=== PATIENT | female | born 1950 | race African-American/Black ===

== ENCOUNTER 2017-12-05 04:10 | Observation (INO) | payer MEDICARE, OTHER ==
[2017-12-05] MEDS ORDERED: NITROGLYCERIN SUBLINGUAL 0.4 MG BOTTLE OF 25. SL ×2 (04:30→05:15)
[2017-12-05 04:39] LABS: ADD MAN DIFF? NO
[2017-12-05] MEDS: NITROGLYCERIN OINT 1 GM PACKET. TP (04:40)
[2017-12-05] MEDS: ASPIRIN CHEWABLE 81 MG TABLET. PO (04:40)
[2017-12-05 04:41] LABS: BASO # 0.1 x10^3/uL (0.0-0.2); BASO % 1 % (0-3); EOS # 0.3 x10^3/uL (0.0-0.7); EOS % 4 % (0-3); HEMATOCRIT 34.6 % (36.0-47.0); HEMOGLOBIN 11.8 g/dL (12.0-15.5); LYMPH # 3.2 x10^3/uL (1.0-4.8); LYMPH % 46 % (24-48); MEAN CORPUSCULAR HEMOGLOBIN 31 pg (25-35); MEAN CORPUSCULAR HGB CONC 34 g/dL (31-37); MEAN CORPUSCULAR VOLUME 91 fL (79-100); MONO # 0.6 x10^3/uL (0.0-1.1); MONO % 8 % (0-9); NEUT # 2.9 x10^3uL (1.8-7.7); NEUT % 41 % (31-73); PLATELET COUNT 243 x10^3/uL (140-400); RED BLOOD COUNT 3.78 x10^6/uL (3.50-5.40); RED CELL DISTRIBUTION WIDTH 12.9 % (11.5-14.5)
[2017-12-05 04:50] LABS: ANION GAP 12 (6-14); BLOOD UREA NITROGEN 16 mg/dL (7-20); BUN/CREATININE RATIO 18 (6-20); CALCIUM 8.9 mg/dL (8.5-10.1); CARBON DIOXIDE 22 mmol/L (21-32); CHLORIDE 108 mmol/L (98-107); CREATININE 0.9 mg/dL (0.6-1.0); GFR 75.3; GLUCOSE 106 mg/dL (70-99); POTASSIUM 3.8 mmol/L (3.5-5.1); SODIUM 142 mmol/L (136-145)
[2017-12-05 04:56] LABS: ALBUMIN 3.5 g/dL (3.4-5.0); ALK PHOS 83 U/L (46-116); ALT (SGPT) 25 U/L (14-59); AST (SGOT) 14 U/L (15-37); TOTAL BILIRUBIN 0.5 mg/dL (0.2-1.0); TOTAL PROTEIN 7.1 g/dL (6.4-8.2)
[2017-12-05 04:58] LABS: TROPONINI < 0.017 ng/mL (0.000-0.055)
[2017-12-05] MEDS ORDERED: ONDANSETRON PF 4 MG/2 ML VIAL. IV (05:15)
[2017-12-05] MEDS: IV NORMAL SALINE 1000ML BAG 1,000 ML IV (06:00)
[2017-12-05] MEDS: LIDO:MAALOX 1:1 20 ML SINGLE DOSE. PO (06:46)
[2017-12-05 08:35] LABS: TROPONINI < 0.017 ng/mL (0.000-0.055)
[2017-12-05] MEDS: HYDROcodone/APAP 5/325MG 1 TAB TABLET PO ×2 (09:02→15:08)
[2017-12-05 11:36] LABS: CHOLESTEROL 208 mg/dL (0-200); HDLC 50 mg/dL (40-60); LDLC 135 mg/dL (0-100); NON-HDL CHOLESTEROL 158 mg/dL (0-129); TRIGLYCERIDES 113 mg/dL (0-150); VLDLC 23 mg/dL (0-40)
[2017-12-05 11:40] LABS: CHOLESTEROL/HDL RATIO 4.2
[2017-12-05 12:42] LABS: TROPONINI < 0.017 ng/mL (0.000-0.055)
[2017-12-05] MEDS ORDERED: AZITHRMYCN 500MG IVPB FOR OMNI 250 ML IV (16:30)
[2017-12-05] MEDS: PANTOPRAZOLE 40 MG TABLET.DR. PO (18:41)
[2017-12-05] MEDS: guaiFENesin DM 600/30MG 1 TAB TAB.ER.12H PO (18:41)
[2017-12-05] MEDS: AZITHROMYCIN 500 MG in IV NORMAL SALINE 250ML 250 ML IV (18:42)
[2017-12-05] MEDS: cefTRIAXone IV Push 1 GM VIAL. IVP (18:42)
[2017-12-05] MEDS: IPRATRPIUM/ALBUTEROL 0.5/2.5MG 3 ML NEBU. NEB (20:21)
[2017-12-05] MEDS: ENOXAPARIN 40 MG/0.4 ML SYRINGE. SQ (21:23)
[2017-12-06] MEDS: IPRATRPIUM/ALBUTEROL 0.5/2.5MG 3 ML NEBU. NEB ×4 (07:39→20:11)
[2017-12-06] MEDS: REGADENOSON 0.4 MG/5 ML DISP.SYRIN. IV (08:45)
[2017-12-06] MEDS: PANTOPRAZOLE 40 MG TABLET.DR. PO (11:48)
[2017-12-06] MEDS: guaiFENesin DM 600/30MG 1 TAB TAB.ER.12H PO ×2 (11:48→21:06)
[2017-12-06] MEDS ORDERED: CONTRAST GIVEN MC (16:45)
[2017-12-06] MEDS: cefTRIAXone IV Push 1 GM VIAL. IVP (20:02)
[2017-12-06] MEDS: HYDROcodone/APAP 5/325MG 1 TAB TABLET PO (20:02)
[2017-12-06] MEDS: CALCIUM CARBONATE 500 MG TAB.CHEW PO (21:06)
[2017-12-06] MEDS: LACTOBACILLUS RHAMNOSUS GG 1 CAPSULE. PO (21:06)
[2017-12-06] MEDS: ENOXAPARIN 40 MG/0.4 ML SYRINGE. SQ (21:08)
[2017-12-07] MEDS: IPRATRPIUM/ALBUTEROL 0.5/2.5MG 3 ML NEBU. NEB ×4 (07:38→20:10)
[2017-12-07] MEDS: IOHEXOL 300 MG/ML 100ML VIAL. IV (08:45)
[2017-12-07] MEDS: PANTOPRAZOLE 40 MG TABLET.DR. PO (10:18)
[2017-12-07] MEDS: LACTOBACILLUS RHAMNOSUS GG 1 CAPSULE. PO ×2 (10:19→20:35)
[2017-12-07] MEDS: guaiFENesin DM 600/30MG 1 TAB TAB.ER.12H PO ×2 (10:20→20:35)
[2017-12-07] MEDS: HYDROcodone/APAP 5/325MG 1 TAB TABLET PO ×2 (14:56→23:18)
[2017-12-07] MEDS: cefTRIAXone IV Push 1 GM VIAL. IVP (17:04)
[2017-12-07] MEDS: ENOXAPARIN 40 MG/0.4 ML SYRINGE. SQ (20:37)
[2017-12-08] MEDS: CALCIUM CARBONATE 500 MG TAB.CHEW PO ×2 (03:29→08:28)
[2017-12-08] MEDS: IPRATRPIUM/ALBUTEROL 0.5/2.5MG 3 ML NEBU. NEB ×2 (07:53→11:26)
[2017-12-08] MEDS: LACTOBACILLUS RHAMNOSUS GG 1 CAPSULE. PO (08:29)
[2017-12-08] MEDS: HYDROcodone/APAP 5/325MG 1 TAB TABLET PO (08:29)
[2017-12-08] MEDS: PANTOPRAZOLE 40 MG TABLET.DR. PO (08:29)
[2017-12-08] MEDS: guaiFENesin DM 600/30MG 1 TAB TAB.ER.12H PO (08:29)
[2017-12-08] MEDS: IBUPROFEN 600 MG TABLET. PO (11:16)
== END 2017-12-08 13:00 | disposition home or self-care (01) ==
LOC: ER 04:10 → 5 SOUTH 05:43
DX: R07.9 Chest pain, unspecified (principal); I10 Essential (primary) hypertension; E78.5 Hyperlipidemia, unspecified; G43.909 Migraine, unspecified, not intractable, without status migrainosus; K21.9 Gastro-esophageal reflux disease without esophagitis; M19.90 Unspecified osteoarthritis, unspecified site; F17.210 Nicotine dependence, cigarettes, uncomplicated; F32.9 Major depressive disorder, single episode, unspecified; J44.1 Chronic obstructive pulmonary disease with (acute) exacerbation; Z83.3 Family history of diabetes mellitus; Z90.710 Acquired absence of both cervix and uterus
CPT/HCPCS: 36415; 71045; 71250; 71275; 78452; 80053; 80061; 84484; 85025; 93005; 93017; 93306; 94618; 94640; 94760; 96365; 96372; 96374; 96375; 96376; 99285; A9500; G0378; G0379; J0456; J0696; J1650; J2785; J7050; J7620; Q9967

== ENCOUNTER 2018-01-20 12:49 | Emergency (ER) | payer MEDICARE, OTHER ==
[2018-01-20] MEDS: DIPHTH,PERTUSS(ACELL),TET TOX 0.5 ML DISP.SYRIN. VAX IM (13:06)
== END 2018-01-20 13:36 | disposition home or self-care (01) ==
LOC: ER 12:49
DX: L03.011 Cellulitis of right finger (principal)
CPT/HCPCS: 90471; 90715; 99283-25

== ENCOUNTER 2018-06-22 23:02 | Emergency (ER) | payer MEDICARE, OTHER ==
[~2018-06-22] VITALS: Ht 172.7 cm; Wt 70.3 kg
[~2018-06-22 23:02] MED LIST: AZIT250T PO; FAMO20TA5 PO; HYDR-2758 PO; ONDA4TAB10 SL; PANT40TA5 PO; SULF1TAB24 PO
[2018-06-22 23:40] VITALS: BP 149/87
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
[2018-06-23] MEDS ORDERED: HYDR-971 PO (00:38)
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
== END 2018-06-23 01:05 | disposition home or self-care (01) ==
LOC: ER 23:02
DX: S62.306A Unspecified fracture of fifth metacarpal bone, right hand, initial encounter for closed fracture (principal); Y04.0XXA Assault by unarmed brawl or fight, initial encounter; Y93.89 Activity, other specified; Y92.89 Other specified places as the place of occurrence of the external cause; Y99.8 Other external cause status
CPT/HCPCS: 29125; 73130; 99284-25

== ENCOUNTER 2019-04-18 15:35 | Inpatient (IN) | payer MEDICARE, OTHER ==
[~2019-04-18] VITALS: Ht 172.7 cm; Wt 67.3 kg
[~2019-04-18 15:35] MED LIST changes: -HYDR-2758 PO; +HYDR-2761 PO; +HYDR-3164 PO; +HYDR25TA PO; -PANT40TA5 PO; +PANT40TA77 PO; +PERM60CR11 TP
[2019-04-18 16:32] LABS: BASO # 0.1 x10^3/uL (0.0-0.2); BASO % 1 % (0-3); EOS # 0.2 x10^3/uL (0.0-0.7); EOS % 4 % (0-3); HEMATOCRIT 38.4 % (36.0-47.0); LYMPH # 3.1 x10^3/uL (1.0-4.8); LYMPH % 45 % (24-48); MEAN CORPUSCULAR HEMOGLOBIN 31 pg (25-35); MEAN CORPUSCULAR HGB CONC 34 g/dL (31-37); MEAN CORPUSCULAR VOLUME 92 fL (79-100); MONO # 0.6 x10^3/uL (0.0-1.1); MONO % 9 % (0-9); NEUT # 2.9 x10^3/uL (1.8-7.7); NEUT % 42 % (31-73); PLATELET COUNT 237 x10^3/uL (140-400); RED BLOOD COUNT 4.16 x10^6/uL (3.50-5.40); RED CELL DISTRIBUTION WIDTH 14.8 % (11.5-14.5); WHITE BLOOD COUNT 6.8 x10^3/uL (4.0-11.0)
[2019-04-18 16:40] LABS: CALCIUM 9.3 mg/dL (8.5-10.1); CREATININE 0.9 mg/dL (0.6-1.0); GFR 75.1; POTASSIUM 3.4 mmol/L (3.5-5.1)
[2019-04-18 16:45] LABS: ALBUMIN 3.6 g/dL (3.4-5.0); ALBUMIN/GLOBULIN RATIO 0.9 (1.0-1.7); TOTAL BILIRUBIN 0.6 mg/dL (0.2-1.0); TOTAL PROTEIN 7.4 g/dL (6.4-8.2)
[2019-04-18] MEDS ORDERED: CONTRAST GIVEN. MC PRN (16:45)
[2019-04-18] MEDS ORDERED: IOHEXOL 350 MG/ML 100 ML VIAL. IV ONE (16:45)
[2019-04-18 16:51] LABS: PROTHROMBIN TIME PATIENT 12.7 SEC (11.7-14.0)
--- NOTE | 2019-04-18 17:09 | RAD ---
CT HEAD WO CONTRAST History: Left hand numbness. Headache. Comparison: None. Technique: Noncontrast CT imaging was performed of the head. Exposure: One or more of the following individualized dose reduction techniques were utilized for this examination: 1. Automated exposure control 2. Adjustment of the mA and/or kV according to patient size 3. Use of iterative reconstruction technique. Findings: No intracranial hemorrhage. No mass effect. No hydrocephalus. Mild brain parenchymal volume loss. Foci of decreased attenuation within the hemispheric white matter, most often due to moderate sequela of chronic microvascular ischemia. Imaged orbits are unremarkable. Imaged paranasal sinuses and mastoid air cells are clear. Bilateral TMJ arthropathy. Impression: 1. No acute intracranial abnormality. 2. Moderate sequela of chronic microvascular ischemia. If concern for acute ischemia MRI can better evaluate. Electronically signed by: Valente Alexander DO (04/18/2019 5:06 PM) [facility]
[2019-04-18] MEDS ORDERED: POTASSIUM CHLORIDE 20 MEQ TABLET.ER. PO ONE (17:15)
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
[2019-04-18 19:15] LABS: BILIRUBIN,URINE NEGATIVE (NEG); CLARITY,URINE CLEAR; COLOR,URINE YELLOW; NITRITE,URINE NEGATIVE (NEG); PROTEIN,URINE NEGATIVE (NEG-TRACE)
[2019-04-18 19:22] LABS: BARBITURATES NEG (NEG); BENZODIAZEPINES NEG (NEG); CANNABINOIDS POS (NEG); COCAINE NEG (NEG); METHADONE NEG (NEG); OPIATES NEG (NEG); PHENCYCLIDINE NEG (NEG)
[2019-04-18 19:23] LABS: AMPHETAMINE/METHAMPHETAMINE NEG (NEG)
[2019-04-18 19:28] LABS: SQUAMOUS EPITHELIAL CELL,UR MOD /LPF
[2019-04-18 19:29] LABS: BACTERIA,URINE FEW /HPF (0-FEW); RBC,URINE 0 /HPF (0-2)
--- NOTE | 2019-04-18 21:19 | PDOC1 ---
History and Physical Date of Admission Date of Admission DATE: 04/18/19 TIME: 21:18 Identification/Chief Complaint Chief Complaint Left arm numbness, visual disturbance Source Source: Patient History of Present Illness History of Present Illness Ms Gonzales is a 68 yo female w/ PMHx HLD, smoker who presents to the emergency room with complaints of left hand numbness that began around 530pm 04/18/19. Patient states that she took 2 full strength aspirin at the onset of the symptoms. She also reports a dull posterior headache. Patient states she was running some errands with her daughter when her hand had some type of spasm and then the numbness began. On further review she notes that she has had similar numbness in her hand for the past few months whenever she lifts something or tries buttoning items of clothing. She has visual disturbance but cannot define it further. No double vision going down stairs. She denies any focal weakness or bowel or bladder difficulties, no loss of coordination or balance difficulties. Currently rates that her headache a 5 out of 10 on the pain scale, she describes it as throbbing, she denies any alleviating or exacerbating factors associated with headache. She also c/o head lice, she has recently shaved her head. She is accompanied by her daughter and 2 grandchildren. She denies any fever, cough, shortness of breath, chest pain, palpitations, nausea, vomiting, diarrhea, or abdominal pain. She denies any dysuria, increased urinary frequency, or hematuria. NIHSS [address] head negative for bleed. CTA head and neck shows no occlusion, but small vertebrobasilar system due to predominantly origin of the bilateral posterior cerebral arteries. K 3.4, Mg 2.2, glucose 115 Past Medical History Cardiovascular: HTN, Hyperlipidemia Pulmonary: Bronchitis CENTRAL NERVOUS SYSTEM: Migraine GI: Constipation, GERD Heme/Onc: No pertinent hx Hepatobiliary: No pertinent hx Psych: No pertinent hx Musculoskeletal: Osteoarthritis Infectious disease: No pertinent hx Renal/: No pertinent hx Endocrine: No pertinent hx Past Surgical History Past Surgical History: Hysterectomy Family History Family History: Diabetes Social History Smoke: <1 pack per day ALCOHOL: none Drugs: Marijuana Current Problem List Problem List Problems Medical Problems: (1) Hypokalemia Status: Acute (2) Numbness of left hand Status: Acute (3) Visual disturbance Status: Acute Current Medications Current Medications Current Medications Iohexol (Omnipaque 350 Mg/ml) 75 ml 1X ONCE IV Last administered on 04/18/19at 16:54; Start 04/18/19 at 16:45; Stop 04/18/19 at 16:46; Status DC Info (CONTRAST GIVEN -- Rx MONITORING) 1 each PRN DAILY PRN MC SEE COMMENTS; Start 04/18/19 at 16:45; Stop 04/20/19 at 16:44 Potassium Chloride (Klor-Con) 40 meq 1X ONCE PO Last administered on 04/18/19at 17:29; Start 04/18/19 at 17:15; Stop 04/18/19 at 17:16; Status DC Active Scripts Active Hydroxyzine Hcl 25 Mg Tablet 1 Tab PO TID PRN Elimite (Permethrin) 60 Gm Cream..g. 60 Gm TP ONCE Use one botle from head to toe, repeat after 1 week Almond 5-325 Tablet (Acetaminophen/Hydrocodone Bitart) 1 Each Tablet 1 Tab PO PRN Q6HRS PRN Bactrim Ds Tablet (Sulfamethoxazole/Trimethoprim) 1 Each Tablet 1 Tab PO BID Pantoprazole Sodium (Pantoprazole Sodium) 40 Mg Tablet.dr 40 Mg PO DAILYAC Allergies Allergies: Coded Allergies: No Known Drug Allergies (Unverified , 07/05/16) ROS General: YES: Fatigue, Malaise; No: Chills, Night Sweats, Appetite, Other PSYCHOLOGICAL ROS: YES: Anxiety, Behavioral Disorder, Disorientation; No: Concentration difficultie, Decreased libido, Depression, Hallucinations, Hostility, Irritablity, Memory difficulties, Mood Swings, Obsessive thoughts, Physical abuse, Sexual abuse, Sleep disturbances, Suicidal ideation, Other Eyes: No Blurry vision, No Decreased vision, No Double vision, No Dry eyes, No Excessive tearing, No Eye Pain, No Itchy Eyes, No Loss of vision, No Photophobia, No Scotomata, No Uses contacts, No Uses glasses, No Other HEENT: No: Heacaches, Visual Changes, Hearing change, Nasal congestion, Nasal discharge, Oral lesions, Sinus pain, Sore Throat, Epistaxis, Sneezing, Snoring, Tinnitus, Vertigo, Vocal changes, Other ALLERGY AND IMMUNOLOGY: No: Hives, Insect Bite Sensitivity, Itchy/Watery Eyes, Nasal Congestion, Post Nasal Drip, Seasonal Allergies, Other Hematological and Lymphatic: No: Bleeding Problems, Blood Clots, Blood Transfusions, Brusing, Night Sweats, Pallor, Swollen Lymph Nodes, Other ENDOCRINE: No: Breast Changes, Galactorrhea, Hair Pattern Changes, Hot Flashes, Malaise/lethargy, Mood Swings, Palpitations, Polydipsia/polyuria, Skin Changes, Temperature Intolerance, Unexpected Weight Changes, Other Breast: No New/Changing Breast Lumps, No Nipple changes, No Nipple discharge, No Other Respiratory: No: Cough, Hemoptysis, Orthopnea, Pleuritic Pain, Shortness of breath, SOB with excertion, Sputum Changes, Stridor, Tachypnea, Wheezing, Other Cardiovascular: No Chest Pain, No Palpitations, No Orthopnea, No Paroxysmal Noc. Dyspnea, No Edema, No Lt Headedness, No Other Gastrointestinal: Yes Nausea; No Vomiting, No Abdominal Pain, No Diarrhea, No Constipation, No Melena, No Hematochezia, No Other Genitourinary: No Dysuria, No Frequency, No Incontinence, No Hematuria, No Retention, No Discharge, No Urgency, No Pain, No Flank Pain, No Other, No , No , No , No , No , No , No Musculoskeletal: No Gait Disturbance, No Joint Pain, No Joint Stiffness, No Joint Swelling, No Muscle Pain, No Muscular Weakness, No Pain In:, No Swelling In:, No Other Neurological: Yes Headaches, Yes Numbness/Tingling; No Behavorial Changes, No Bowel/Bladder ControlChng, No Confusion, No Dizziness, No Gait Disturbance, No Impaired Coord/balance, No Memory Loss, No Seizures, No Speech Problems, No Tremors, No Visual Changes, No Weakness, No Other Skin: No Dry Skin, No Eczema, No Hair Changes, No Lumps, No Mole Changes, No Mottling, No Nail Changes, No Pruritus, No Rash, No Skin Lesion Changes, No Other, No Acne Physical Exam General: Alert, Oriented X3, Cooperative, No acute distress HEENT: Atraumatic, PERRLA, EOMI, Mucous membr. moist/pink Lungs: Clear to auscultation, Normal air movement Heart: S1S2, RRR, no gallops, no murmurs Abdomen: Normal bowel sounds, Soft, No tenderness, No hepatosplenomegaly, No masses Rectal Exam: not examined Extremities: No clubbing, No cyanosis, No edema, Normal pulses, No tenderness/swelling Skin: No rashes, No breakdown, No significant lesion Neuro: Normal gait, Normal speech, Strength at 5/5 X4 ext, Normal tone, Sensation intact, Cranial nerves 3-12 NL, Reflexes 2+ Psych/Mental Status: Mental status NL, Mood NL Vitals Vitals Vital Signs Date Time Temp Pulse Resp B/P (MAP) Pulse Ox O2 Delivery O2 Flow Rate FiO2 04/18/19 20:50 63 18 132/62 (85) 100 Room Air 04/18/19 15:53 97.7 97.7 Labs Labs Laboratory Tests Test 04/18/19 16:25 04/18/19 19:00 White Blood Count 6.8 x10^3/uL (4.0-11.0) Red Blood Count 4.16 x10^6/uL (3.50-5.40) Hemoglobin 13.0 g/dL (12.0-15.5) Hematocrit 38.4 % (36.0-47.0) Mean Corpuscular Volume 92 fL (79-100) Mean Corpuscular Hemoglobin 31 pg (25-35) Mean Corpuscular Hemoglobin Concent 34 g/dL (31-37) Red Cell Distribution Width 14.8 % (11.5-14.5) Platelet Count 237 x10^3/uL (140-400) Neutrophils (%) (Auto) 42 % (31-73) Lymphocytes (%) (Auto) 45 % (24-48) Monocytes (%) (Auto) 9 % (0-9) Eosinophils (%) (Auto) 4 % (0-3) Basophils (%) (Auto) 1 % (0-3) Neutrophils # (Auto) 2.9 x10^3/uL (1.8-7.7) Lymphocytes # (Auto) 3.1 x10^3/uL (1.0-4.8) Monocytes # (Auto) 0.6 x10^3/uL (0.0-1.1) Eosinophils # (Auto) 0.2 x10^3/uL (0.0-0.7) Basophils # (Auto) 0.1 x10^3/uL (0.0-0.2) Prothrombin Time 12.7 SEC (11.7-14.0) Prothromb Time International Ratio 1.0 (0.8-1.1) Sodium Level 143 mmol/L (136-145) Potassium Level 3.4 mmol/L (3.5-5.1) Chloride Level 107 mmol/L (98-107) Carbon Dioxide Level 23 mmol/L (21-32) Anion Gap 13 (6-14) Blood Urea Nitrogen 22 mg/dL (7-20) Creatinine 0.9 mg/dL (0.6-1.0) Estimated GFR (Cockcroft-Gault) 75.1 BUN/Creatinine Ratio 24 (6-20) Glucose Level 115 mg/dL (70-99) Calcium Level 9.3 mg/dL (8.5-10.1) Magnesium Level 2.2 mg/dL (1.8-2.4) Total Bilirubin 0.6 mg/dL (0.2-1.0) Aspartate Amino Transf (AST/SGOT) 13 U/L (15-37) Alanine Aminotransferase (ALT/SGPT) 21 U/L (14-59) Alkaline Phosphatase 83 U/L (46-116) Total Protein 7.4 g/dL (6.4-8.2) Albumin 3.6 g/dL (3.4-5.0) Albumin/Globulin Ratio 0.9 (1.0-1.7) Urine Collection Type Unknown Urine Color Yellow Urine Clarity Clear Urine pH 6.0 Urine Specific [place] >=1.030 Urine Protein Negative mg/dL (NEG-TRACE) Urine Glucose (UA) Negative mg/dL (NEG) Urine Ketones (Stick) Negative mg/dL (NEG) Urine Blood Negative (NEG) Urine Nitrite Negative (NEG) Urine Bilirubin Negative (NEG) Urine Urobilinogen Dipstick 1.0 mg/dL (0.2 mg/dL) Urine Leukocyte Esterase Trace (NEG) Urine RBC 0 /HPF (0-2) Urine WBC 11-20 /HPF (0-4) Urine Squamous Epithelial Cells Mod /LPF Urine Bacteria Few /HPF (0-FEW) Urine Opiates Screen Neg (NEG) Urine Methadone Screen Neg (NEG) Urine Barbiturates Neg (NEG) Urine Phencyclidine Screen Neg (NEG) Urine Amphetamine/Methamphetamine Neg (NEG) Urine Benzodiazepines Screen Neg (NEG) Urine Cocaine Screen Neg (NEG) Urine Cannabinoids Screen Pos (NEG) Urine Ethyl Alcohol Neg (NEG) Laboratory Tests Test 04/18/19 16:25 04/18/19 19:00 White Blood Count 6.8 x10^3/uL (4.0-11.0) Red Blood Count 4.16 x10^6/uL (3.50-5.40) Hemoglobin 13.0 g/dL (12.0-15.5) Hematocrit 38.4 % (36.0-47.0) Mean Corpuscular Volume 92 fL (79-100) Mean Corpuscular Hemoglobin 31 pg (25-35) Mean Corpuscular Hemoglobin Concent 34 g/dL (31-37) Red Cell Distribution Width 14.8 % (11.5-14.5) Platelet Count 237 x10^3/uL (140-400) Neutrophils (%) (Auto) 42 % (31-73) Lymphocytes (%) (Auto) 45 % (24-48) Monocytes (%) (Auto) 9 % (0-9) Eosinophils (%) (Auto) 4 % (0-3) Basophils (%) (Auto) 1 % (0-3) Neutrophils # (Auto) 2.9 x10^3/uL (1.8-7.7) Lymphocytes # (Auto) 3.1 x10^3/uL (1.0-4.8) Monocytes # (Auto) 0.6 x10^3/uL (0.0-1.1) Eosinophils # (Auto) 0.2 x10^3/uL (0.0-0.7) Basophils # (Auto) 0.1 x10^3/uL (0.0-0.2) Prothrombin Time 12.7 SEC (11.7-14.0) Prothromb Time International Ratio 1.0 (0.8-1.1) Sodium Level 143 mmol/L (136-145) Potassium Level 3.4 mmol/L (3.5-5.1) Chloride Level 107 mmol/L (98-107) Carbon Dioxide Level 23 mmol/L (21-32) Anion Gap 13 (6-14) Blood Urea Nitrogen 22 mg/dL (7-20) Creatinine 0.9 mg/dL (0.6-1.0) Estimated GFR (Cockcroft-Gault) 75.1 BUN/Creatinine Ratio 24 (6-20) Glucose Level 115 mg/dL (70-99) Calcium Level 9.3 mg/dL (8.5-10.1) Magnesium Level 2.2 mg/dL (1.8-2.4) Total Bilirubin 0.6 mg/dL (0.2-1.0) Aspartate Amino Transf (AST/SGOT) 13 U/L (15-37) Alanine Aminotransferase (ALT/SGPT) 21 U/L (14-59) Alkaline Phosphatase 83 U/L (46-116) Total Protein 7.4 g/dL (6.4-8.2) Albumin 3.6 g/dL (3.4-5.0) Albumin/Globulin Ratio 0.9 (1.0-1.7) Urine Collection Type Unknown Urine Color Yellow Urine Clarity Clear Urine pH 6.0 Urine Specific [place] >=1.030 Urine Protein Negative mg/dL (NEG-TRACE) Urine Glucose (UA) Negative mg/dL (NEG) Urine Ketones (Stick) Negative mg/dL (NEG) Urine Blood Negative (NEG) Urine Nitrite Negative (NEG) Urine Bilirubin Negative (NEG) Urine Urobilinogen Dipstick 1.0 mg/dL (0.2 mg/dL) Urine Leukocyte Esterase Trace (NEG) Urine RBC 0 /HPF (0-2) Urine WBC 11-20 /HPF (0-4) Urine Squamous Epithelial Cells Mod /LPF Urine Bacteria Few /HPF (0-FEW) Urine Opiates Screen Neg (NEG) Urine Methadone Screen Neg (NEG) Urine Barbiturates Neg (NEG) Urine Phencyclidine Screen Neg (NEG) Urine Amphetamine/Methamphetamine Neg (NEG) Urine Benzodiazepines Screen Neg (NEG) Urine Cocaine Screen Neg (NEG) Urine Cannabinoids Screen Pos (NEG) Urine Ethyl Alcohol Neg (NEG) Images Images CT head - No intracranial hemorrhage. No mass effect. No hydrocephalus. Mild brain parenchymal volume loss. Foci of decreased attenuation within the hemispheric white matter, most often due to moderate sequela of chronic microvascular ischemia. Imaged orbits are unremarkable. Imaged paranasal sinuses and mastoid air cells are clear. Bilateral TMJ arthropathy. CT angio head neck - 1. No intracranial arterial stenosis or occlusion 2. No arterial stenosis or occlusion within the neck. 3. Small vertebrobasilar system due to predominantly origin of the b ilateral posterior cerebral arteries. VTE Prophylaxis Ordered VTE Prophylaxis Devices: Yes VTE Pharmacological Prophylaxi: Yes Assessment/Plan Assessment/Plan A/P: Left hand numbness - worsening on dorsal manipulation of hand, negative for carpal tunnel on initial examination. No weakness. ASA and statin given. Her symptoms have been intermittent over a long time course, this is a simply a recent exacerbation. Neurology was consulted Visual disturbance - she cannot describe it well. No definite ELLIS on ophthalmic examination. Telemetry, ASA, statin, neurology consultation for concern for CVA Lice exposure - she has shaved her head, this seems to have been a definitive treatment for it HLD - historically, will check lipids. High intensity statin usually indicated for concern for CVA. Smoker - counseled on cessation Marijuana positive - counseled on cessation given her neurologic symptoms and avoidance of synthetic cannabinoids Hypokalemia - will replace oral Headache - not the worst of her life, she claims history of migraines. 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
[2019-04-18] MEDS: hydrOXYzine 25 MG TABLET PO PRN (22:28)
[2019-04-18] MEDS ORDERED: ATORVASTATIN CALCIUM 40 MG TABLET. PO SCH (22:30)
[2019-04-18 23:00] VITALS: BP 138/69
[2019-04-18 23:40] VITALS: BP 168/88
[2019-04-18 23:55] VITALS: BP 120/66
--- NOTE | 2019-04-19 01:45 | NUR ---
This RN resumed care of the patient at this time.
[2019-04-19 03:00] VITALS: BP 131/74
[2019-04-19] MEDS: hydrOXYzine 25 MG TABLET PO PRN (04:46)
[2019-04-19 07:00] VITALS: BP 111/62
[2019-04-19 07:13] LABS: CALCIUM 8.9 mg/dL (8.5-10.1); CHOLESTEROL/HDL RATIO 4.7; CREATININE 0.8 mg/dL (0.6-1.0); GFR 86.1; POTASSIUM 4.1 mmol/L (3.5-5.1)
[2019-04-19] MEDS ORDERED: PANTOPRAZOLE 40 MG TABLET.DR. PO SCH (07:30)
[2019-04-19] MEDS ORDERED: ASPIRIN 325 MG TABLET PO SCH (08:00)
[2019-04-19 11:00] VITALS: BP 98/65
--- NOTE | 2019-04-19 11:10 | PDOC ---
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 HTN Osteoarthritis GERD History of Present Illness History of Present Illness 04/19/19 Pt seen and examined at bedside; sitting up in bed with AIDE QUINTERO RN Vitals/I&O Vitals/I&O: Vital Signs Date Time Temp Pulse Resp B/P (MAP) Pulse Ox O2 Delivery O2 Flow Rate FiO2 04/19/19 07:00 97.9 71 16 111/62 (78) 99 Room Air 97.9 I & O 04/18/19 04/18/19 04/19/19 15:00 23:00 07:00 Intake Total 0 ml Output Total 0 ml Balance 0 ml Physical Exam General: Alert, Oriented X3, Cooperative, No acute distress Heart: Normal S1 Lungs: Clear, Other Abdomen: Normal bowel sounds, Soft, No tenderness, No hepatosplenomegaly, No masses Extremities: No clubbing, No cyanosis, No edema, Normal pulses, No tender ness/swelling Skin: No rashes, No breakdown, No significant lesion Labs Labs: Laboratory Tests Test 04/18/19 16:25 04/18/19 19:00 04/19/19 06:25 White Blood Count 6.8 x10^3/uL (4.0-11.0) Red Blood Count 4.16 x10^6/uL (3.50-5.40) Hemoglobin 13.0 g/dL (12.0-15.5) Hematocrit 38.4 % (36.0-47.0) Mean Corpuscular Volume 92 fL (79-100) Mean Corpuscular Hemoglobin 31 pg (25-35) Mean Corpuscular Hemoglobin Concent 34 g/dL (31-37) Red Cell Distribution Width 14.8 % (11.5-14.5) Platelet Count 237 x10^3/uL (140-400) Neutrophils (%) (Auto) 42 % (31-73) Lymphocytes (%) (Auto) 45 % (24-48) Monocytes (%) (Auto) 9 % (0-9) Eosinophils (%) (Auto) 4 % (0-3) Basophils (%) (Auto) 1 % (0-3) Neutrophils # (Auto) 2.9 x10^3/uL (1.8-7.7) Lymphocytes # (Auto) 3.1 x10^3/uL (1.0-4.8) Monocytes # (Auto) 0.6 x10^3/uL (0.0-1.1) Eosinophils # (Auto) 0.2 x10^3/uL (0.0-0.7) Basophils # (Auto) 0.1 x10^3/uL (0.0-0.2) Prothrombin Time 12.7 SEC (11.7-14.0) Prothromb Time International Ratio 1.0 (0.8-1.1) Sodium Level 143 mmol/L (136-145) 143 mmol/L (136-145) Potassium Level 3.4 mmol/L (3.5-5.1) 4.1 mmol/L (3.5-5.1) Chloride Level 107 mmol/L (98-107) 108 mmol/L (98-107) Carbon Dioxide Level 23 mmol/L (21-32) 24 mmol/L (21-32) Anion Gap 13 (6-14) 11 (6-14) Blood Urea Nitrogen 22 mg/dL (7-20) 14 mg/dL (7-20) Creatinine 0.9 mg/dL (0.6-1.0) 0.8 mg/dL (0.6-1.0) Estimated GFR (Cockcroft-Gault) 75.1 86.1 BUN/Creatinine Ratio 24 (6-20) Glucose Level 115 mg/dL (70-99) 102 mg/dL (70-99) Calcium Level 9.3 mg/dL (8.5-10.1) 8.9 mg/dL (8.5-10.1) Magnesium Level 2.2 mg/dL (1.8-2.4) Total Bilirubin 0.6 mg/dL (0.2-1.0) Aspartate Amino Transf (AST/SGOT) 13 U/L (15-37) Alanine Aminotransferase (ALT/SGPT) 21 U/L (14-59) Alkaline Phosphatase 83 U/L (46-116) Total Protein 7.4 g/dL (6.4-8.2) Albumin 3.6 g/dL (3.4-5.0) Albumin/Globulin Ratio 0.9 (1.0-1.7) Urine Collection Type Unknown Urine Color Yellow Urine Clarity Clear Urine pH 6.0 Urine Specific [place] >=1.030 Urine Protein Negative mg/dL (NEG-TRACE) Urine Glucose (UA) Negative mg/dL (NEG) Urine Ketones (Stick) Negative mg/dL (NEG) Urine Blood Negative (NEG) Urine Nitrite Negative (NEG) Urine Bilirubin Negative (NEG) Urine Urobilinogen Dipstick 1.0 mg/dL (0.2 mg/dL) Urine Leukocyte Esterase Trace (NEG) Urine RBC 0 /HPF (0-2) Urine WBC 11-20 /HPF (0-4) Urine Squamous Epithelial Cells Mod /LPF Urine Bacteria Few /HPF (0-FEW) Urine Opiates Screen Neg (NEG) Urine Methadone Screen Neg (NEG) Urine Barbiturates Neg (NEG) Urine Phencyclidine Screen Neg (NEG) Urine Amphetamine/Methamphetamine Neg (NEG) Urine Benzodiazepines Screen Neg (NEG) Urine Cocaine Screen Neg (NEG) Urine Cannabinoids Screen Pos (NEG) Urine Ethyl Alcohol Neg (NEG) Triglycerides Level 116 mg/dL (0-150) Cholesterol Level 242 mg/dL (0-200) LDL Cholesterol, Calculated 167 mg/dL (0-100) VLDL Cholesterol, Calculated 23 mg/dL (0-40) Non-HDL Cholesterol Calculated 190 mg/dL (0-129) HDL Cholesterol 52 mg/dL (40-60) Cholesterol/HDL Ratio 4.7 Review of Systems Review of Systems: Denies headache Denies palpitations Assessment and Plan Assessmemt and Plan Problems Medical Problems: (1) Hypokalemia Status: Acute (2) Numbness of left hand Status: Acute (3) Visual disturbance Status: Acute Assessment Visual change 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 Medications: Current Medications Medications (Trade) Dose Ordered Sig/Thao Route PRN Reason Start Time Stop Time Status Last Admin Dose Admin Iohexol (Omnipaque 350 Mg/ml) 75 ml 1X ONCE IV 04/18/19 16:45 04/18/19 16:46 DC 04/18/19 16:54 Potassium Chloride (Klor-Con) 40 meq 1X ONCE PO 04/18/19 17:15 04/18/19 17:16 DC 04/18/19 17:29 Hydroxyzine HCl (Atarax) 25 mg PRN TID PRN PO itching 04/18/19 21:30 04/19/19 04:46 Aspirin (Fernando Aspirin) 325 mg [id number] PO 04/19/19 08:00 04/19/19 10:08 Atorvastatin Calcium (Lipitor) 40 mg QHS PO 04/18/19 22:30 04/18/19 22:32 XAVI CORREIA III DO Apr 19, 2019 11:10
--- NOTE | 2019-04-19 11:56 | PDOC2 ---
NEUROLOGY CONSULT Date of Admission Date of Admission DATE: 04/19/19 TIME: 11:50 Reason for Consult Reason for Consult: Stroke symptoms Referring Physician Referring Physician: Dr. Ventura Source Source: Chart review, Patient History of Present Illness History of Present Illness The patient is a 68-year-old right-handed female who comes into the hospital because yesterday she had some left arm numbness and blurred vision. She has had the left arm symptoms often on for up to several years. She has not seen a neurologist. She does not like to go to the doctor. The blurred vision was new yesterday but has resolved. There was no headache, diplopia, dysphagia, dysarthria, or numbness/weakness elsewhere. She feels back to normal today. Past Medical History Cardiovascular: CHF, HTN, Other (angina) Pulmonary: Asthma, Bronchitis GI: GERD Musculoskeletal: Osteoarthritis Past Surgical History Past Surgical History: Hysterectomy (Partial) Family History Family History: Cancer, Hyperlipidemia Social History Social History Single, no alcohol or tobacco Current Medications Current Medications Current Medications Iohexol (Omnipaque 350 Mg/ml) 75 ml 1X ONCE IV Last administered on 04/18/19at 16:54; Start 04/18/19 at 16:45; Stop 04/18/19 at 16:46; Status DC Info (CONTRAST GIVEN -- Rx MONITORING) 1 each PRN DAILY PRN MC SEE COMMENTS; Start 04/18/19 at 16:45; Stop 04/20/19 at 16:44 Potassium Chloride (Klor-Con) 40 meq 1X ONCE PO Last administered on 04/18/19at 17:29; Start 04/18/19 at 17:15; Stop 04/18/19 at 17:16; Status DC Hydroxyzine HCl (Atarax) 25 mg PRN TID PRN PO itching Last administered on at 04:46; Start 04/18/19 at 21:30 Pantoprazole Sodium (Protonix) 40 mg DAILYAC PO ; Start 04/19/19 at 07:30 Aspirin (Fernando Aspirin) 325 mg DAILYWBKFT PO Last administered on 04/19/19at 10:08; Start 04/19/19 at 08:00 Atorvastatin Calcium (Lipitor) 40 mg QHS PO Last administered on 04/18/19at 22:32; Start 04/18/19 at 22:30 Active Scripts Active Hydroxyzine Hcl 25 Mg Tablet 1 Tab PO TID PRN Elimite (Permethrin) 60 Gm Cream..g. 60 Gm TP ONCE Use one botle from head to toe, repeat after 1 week [place] 5-325 Tablet (Acetaminophen/Hydrocodone Bitart) 1 Each Tablet 1 Tab PO PRN Q6HRS PRN Bactrim Ds Tablet (Sulfamethoxazole/Trimethoprim) 1 Each Tablet 1 Tab PO BID Pantoprazole Sodium (Pantoprazole Sodium) 40 Mg Tablet.dr 40 Mg PO DAILYAC Allergies Allergies: Coded Allergies: No Known Drug Allergies (Unverified , 07/05/16) ROS Review of System Negative for fever, chills, weight loss, shortness of breath, chest pain, indigestion, hematochezia, melena, and dysuria. Full 14-point review of systems is negative. Physical Exam Physical Examination General: Well-developed, well-nourished black female in no acute distress HEENT: Normocephalic and�atraumatic. Temporal arteries�pulsatile and nontender.�Fundoscopic exam unremarkable Neck: Supple without bruit, no meningismus� Musculoskeletal: Stability:�see neurologic. Gait exam:�see neurologic. Tone:�see neurologic.�Strength:�see neurologic.� Neurological: Mental Status:�intact, orientation, memory, attention span/concentration, language, fund of knowledge normal. Cranial Nerves:�Pupils equal and reactive to light, extraocular movements are�intact, visual higgins are full to conf rontation. Facial sensation is normal. There is no facial asymmetry. Vestibulo- ocular reflex is intact. Palate elevates and tongue protrudes in midline. All other cranial related problems are negative except as mentioned before.�Reflexes:�2+ and symmetric with flexor plantar responses. Motor:�5/5 strength with normal tone, atrophy of left first dorsal interosseous. Coordination:�Finger-nose finger and fmvm-qb-uync testing are normal. Rapid alternating movements and fine finger movements are intact. Gait:�Normal, including tandem. Sensory:�Normal pinprick, vibration, light touch, proprioception.� Vitals VITALS Vital Signs Date Time Temp Pulse Resp B/P (MAP) Pulse Ox O2 Delivery O2 Flow Rate FiO2 04/19/19 07:00 97.9 71 16 111/62 (78) 99 Room Air 97.9 Labs Labs Laboratory Tests Test 04/18/19 16:25 04/18/19 19:00 04/19/19 06:25 White Blood Count 6.8 x10^3/uL (4.0-11.0) Red Blood Count 4.16 x10^6/uL (3.50-5.40) Hemoglobin 13.0 g/dL (12.0-15.5) Hematocrit 38.4 % (36.0-47.0) Mean Corpuscular Volume 92 fL (79-100) Mean Corpuscular Hemoglobin 31 pg (25-35) Mean Corpuscular Hemoglobin Concent 34 g/dL (31-37) Red Cell Distribution Width 14.8 % (11.5-14.5) Platelet Count 237 x10^3/uL (140-400) Neutrophils (%) (Auto) 42 % (31-73) Lymphocytes (%) (Auto) 45 % (24-48) Monocytes (%) (Auto) 9 % (0-9) Eosinophils (%) (Auto) 4 % (0-3) Basophils (%) (Auto) 1 % (0-3) Neutrophils # (Auto) 2.9 x10^3/uL (1.8-7.7) Lymphocytes # (Auto) 3.1 x10^3/uL (1.0-4.8) Monocytes # (Auto) 0.6 x10^3/uL (0.0-1.1) Eosinophils # (Auto) 0.2 x10^3/uL (0.0-0.7) Basophils # (Auto) 0.1 x10^3/uL (0.0-0.2) Prothrombin Time 12.7 SEC (11.7-14.0) Prothromb Time International Ratio 1.0 (0.8-1.1) Sodium Level 143 mmol/L (136-145) 143 mmol/L (136-145) Potassium Level 3.4 mmol/L (3.5-5.1) 4.1 mmol/L (3.5-5.1) Chloride Level 107 mmol/L (98-107) 108 mmol/L (98-107) Carbon Dioxide Level 23 mmol/L (21-32) 24 mmol/L (21-32) Anion Gap 13 (6-14) 11 (6-14) Blood Urea Nitrogen 22 mg/dL (7-20) 14 mg/dL (7-20) Creatinine 0.9 mg/dL (0.6-1.0) 0.8 mg/dL (0.6-1.0) Estimated GFR (Cockcroft-Gault) 75.1 86.1 BUN/Creatinine Ratio 24 (6-20) Glucose Level 115 mg/dL (70-99) 102 mg/dL (70-99) Calcium Level 9.3 mg/dL (8.5-10.1) 8.9 mg/dL (8.5-10.1) Magnesium Level 2.2 mg/dL (1.8-2.4) Total Bilirubin 0.6 mg/dL (0.2-1.0) Aspartate Amino Transf (AST/SGOT) 13 U/L (15-37) Alanine Aminotransferase (ALT/SGPT) 21 U/L (14-59) Alkaline Phosphatase 83 U/L (46-116) Total Protein 7.4 g/dL (6.4-8.2) Albumin 3.6 g/dL (3.4-5.0) Albumin/Globulin Ratio 0.9 (1.0-1.7) Urine Collection Type Unknown Urine Color Yellow Urine Clarity Clear Urine pH 6.0 Urine Specific Jackson >=1.030 Urine Protein Negative mg/dL (NEG-TRACE) Urine Glucose (UA) Negative mg/dL (NEG) Urine Ketones (Stick) Negative mg/dL (NEG) Urine Blood Negative (NEG) Urine Nitrite Negative (NEG) Urine Bilirubin Negative (NEG) Urine Urobilinogen Dipstick 1.0 mg/dL (0.2 mg/dL) Urine Leukocyte Esterase Trace (NEG) Urine RBC 0 /HPF (0-2) Urine WBC 11-20 /HPF (0-4) Urine Squamous Epithelial Cells Mod /LPF Urine Bacteria Few /HPF (0-FEW) Urine Opiates Screen Neg (NEG) Urine Methadone Screen Neg (NEG) Urine Barbiturates Neg (NEG) Urine Phencyclidine Screen Neg (NEG) Urine Amphetamine/Methamphetamine Neg (NEG) Urine Benzodiazepines Screen Neg (NEG) Urine Cocaine Screen Neg (NEG) Urine Cannabinoids Screen Pos (NEG) Urine Ethyl Alcohol Neg (NEG) Triglycerides Level 116 mg/dL (0-150) Cholesterol Level 242 mg/dL (0-200) LDL Cholesterol, Calculated 167 mg/dL (0-100) VLDL Cholesterol, Calculated 23 mg/dL (0-40) Non-HDL Cholesterol Calculated 190 mg/dL (0-129) HDL Cholesterol 52 mg/dL (40-60) Cholesterol/HDL Ratio 4.7 Laboratory Tests Test 04/18/19 16:25 04/18/19 19:00 04/19/19 06:25 White Blood Count 6.8 x10^3/uL (4.0-11.0) Red Blood Count 4.16 x10^6/uL (3.50-5.40) Hemoglobin 13.0 g/dL (12.0-15.5) Hematocrit 38.4 % (36.0-47.0) Mean Corpuscular Volume 92 fL (79-100) Mean Corpuscular Hemoglobin 31 pg (25-35) Mean Corpuscular Hemoglobin Concent 34 g/dL (31-37) Red Cell Distribution Width 14.8 % (11.5-14.5) Platelet Count 237 x10^3/uL (140-400) Neutrophils (%) (Auto) 42 % (31-73) Lymphocytes (%) (Auto) 45 % (24-48) Monocytes (%) (Auto) 9 % (0-9) Eosinophils (%) (Auto) 4 % (0-3) Basophils (%) (Auto) 1 % (0-3) Neutrophils # (Auto) 2.9 x10^3/uL (1.8-7.7) Lymphocytes # (Auto) 3.1 x10^3/uL (1.0-4.8) Monocytes # (Auto) 0.6 x10^3/uL (0.0-1.1) Eosinophils # (Auto) 0.2 x10^3/uL (0.0-0.7) Basophils # (Auto) 0.1 x10^3/uL (0.0-0.2) Prothrombin Time 12.7 SEC (11.7-14.0) Prothromb Time International Ratio 1.0 (0.8-1.1) Sodium Level 143 mmol/L (136-145) 143 mmol/L (136-145) Potassium Level 3.4 mmol/L (3.5-5.1) 4.1 mmol/L (3.5-5.1) Chloride Level 107 mmol/L (98-107) 108 mmol/L (98-107) Carbon Dioxide Level 23 mmol/L (21-32) 24 mmol/L (21-32) Anion Gap 13 (6-14) 11 (6-14) Blood Urea Nitrogen 22 mg/dL (7-20) 14 mg/dL (7-20) Creatinine 0.9 mg/dL (0.6-1.0) 0.8 mg/dL (0.6-1.0) Estimated GFR (Cockcroft-Gault) 75.1 86.1 BUN/Creatinine Ratio 24 (6-20) Glucose Level 115 mg/dL (70-99) 102 mg/dL (70-99) Calcium Level 9.3 mg/dL (8.5-10.1) 8.9 mg/dL (8.5-10.1) Magnesium Level 2.2 mg/dL (1.8-2.4) Total Bilirubin 0.6 mg/dL (0.2-1.0) Aspartate Amino Transf (AST/SGOT) 13 U/L (15-37) Alanine Aminotransferase (ALT/SGPT) 21 U/L (14-59) Alkaline Phosphatase 83 U/L (46-116) Total Protein 7.4 g/dL (6.4-8.2) Albumin 3.6 g/dL (3.4-5.0) Albumin/Globulin Ratio 0.9 (1.0-1.7) Urine Collection Type Unknown Urine Color Yellow Urine Clarity Clear Urine pH 6.0 Urine Specific [place] >=1.030 Urine Protein Negative mg/dL (NEG-TRACE) Urine Glucose (UA) Negative mg/dL (NEG) Urine Ketones (Stick) Negative mg/dL (NEG) Urine Blood Negative (NEG) Urine Nitrite Negative (NEG) Urine Bilirubin Negative (NEG) Urine Urobilinogen Dipstick 1.0 mg/dL (0.2 mg/dL) Urine Leukocyte Esterase Trace (NEG) Urine RBC 0 /HPF (0-2) Urine WBC 11-20 /HPF (0-4) Urine Squamous Epithelial Cells Mod /LPF Urine Bacteria Few /HPF (0-FEW) Urine Opiates Screen Neg (NEG) Urine Methadone Screen Neg (NEG) Urine Barbiturates Neg (NEG) Urine Phencyclidine Screen Neg (NEG) Urine Amphetamine/Methamphetamine Neg (NEG) Urine Benzodiazepines Screen Neg (NEG) Urine Cocaine Screen Neg (NEG) Urine Cannabinoids Screen Pos (NEG) Urine Ethyl Alcohol Neg (NEG) Triglycerides Level 116 mg/dL (0-150) Cholesterol Level 242 mg/dL (0-200) LDL Cholesterol, Calculated 167 mg/dL (0-100) VLDL Cholesterol, Calculated 23 mg/dL (0-40) Non-HDL Cholesterol Calculated 190 mg/dL (0-129) HDL Cholesterol 52 mg/dL (40-60) Cholesterol/HDL Ratio 4.[address] HEAD WO CONTRAST History: Left hand numbness. Headache. Comparison: None. Technique: Noncontrast CT imaging was performed of the head. Exposure: One or more of the following individualized dose reduction techniques were utilized for this examination: 1. Automated exposure control 2. Adjustment of the mA and/or kV according to patient size 3. Use of iterative reconstruction technique. Findings: No intracranial hemorrhage. No mass effect. No hydrocephalus. Mild brain parenchymal volume loss. Foci of decreased attenuation within the hemispheric white matter, most often due to moderate sequela of chronic microvascular ischemia. Imaged orbits are unremarkable. Imaged paranasal sinuses and mastoid air cells are clear. Bilateral TMJ arthropathy. Impression: 1. No acute intracranial abnormality. 2. Moderate sequela of chronic microvascular ischemia. If concern for acute ischemia MRI can better evaluate. CT ANGIOGRAPHY HEAD AND NECK History: Left hand numbness. Headache. Technique: After bolus of intravenous contrast, volumetric CT data acquisition was acquired of the head and neck. Multiplanar reconstruction images to include MIP and 3-D reconstruction images are submitted. Exposure: One or more of the following individualized dose reduction techniques were utilized for this examination: 1. Automated exposure control 2. Adjustment of the mA and/or kV according to patient size 3. Use of iterative reconstruction technique. Contrast: 75 mL Omnipaque 350 IV contrast. Comparison: April 18, [address] Any determination of stenosis is based on NASCET criteria. See dedicated noncontrast head CT for further details of brain parenchyma. Head CTA: ICA: No stenosis, occlusion or aneurysm. MCA: No stenosis, occlusion or aneurysm. KHALIF: No stenosis, occlusion or aneurysm. TOBACCO FARMWORKER: No stenosis, occlusion or aneurysm. origin of the left posterior cerebral artery. Predominantly origin of the right posterior cerebral artery. Basilar artery: No stenosis, occlusion or aneurysm. Congenitally small basilar artery. Distal vertebral arteries: No stenosis, occlusion or aneurysm. Congenital small distal vertebral arteries. CT angiogram neck: Aortic arch: Conventional arch anatomy. Common carotid arteries: No stenosis, occlusion or dissection. Minimal bilateral carotid bulb atheromatous calcific effusions. Internal carotid arteries: No stenosis, occlusion or dissection. External carotid arteries: Patent Vertebral arteries: No stenosis, occlusion or dissection. Imaged lung apices are unremarkable. Soft tissues appear normal. Bones: No pathologic osseous lesions. Bilateral TMJ arthropathy. Mandibular periapical lucencies. Multilevel degenerative changes of the cervical spine most prominent C5-C6 and C6-C7. Impression: 1. No intracranial arterial stenosis or occlusion 2. No arterial stenosis or occlusion within the neck. 3. Small vertebrobasilar system due to predominantly origin of the bilateral posterior cerebral arteries. Assessment/Plan Assessment/Plan Impression: Left cubital tunnel syndrome as evidenced by the atrophy of the left first dorsal interosseous and the intermittent numbness in the left arm Bilateral blurred vision, unlikely to be related to cerebrovascular disease. She has had CT of the head and CT angiogram. Recommendations: MRI of the brain If this is normal, discharge No further stroke workup needed, she did not have a stroke or transient ischemic attack Follow-up in my office for an EMG of the left upper extremity. I told the patient to keep her elbow straight and avoid resting on it. Thank you for letting me help the patient's care. RICKIE SHAFFER MD Apr 19, 2019 11:56
--- NOTE | 2019-04-19 13:13 | DS ---
DATE OF DISCHARGE: 04/18/2019 ADMISSION DIAGNOSES: Left hand numbness and weakness, visual changes, hypertension, osteoarthritis, and gastroesophageal reflux disease. DISCHARGE DIAGNOSES: Resolving neurologic symptoms, resolving visual changes, chronic hypertension, osteoarthritis, and gastroesophageal reflux disease. CONSULTS: Neurology. PROCEDURES: None. HOSPITAL COURSE: The patient is a pleasant middle-aged female who presented with some vague visual changes and left hand weakness. She does have cubital tunnel nerve injury and has left thumb thenar eminence atrophy. We did admit the patient and consulted Dr. Lewis. He saw the patient this morning and states she can go home. He has ordered an MRI just to be safe, but if the MRI is negative, we plan to discharge. She looks great. Heart tones are normal. Lungs are clear. She is alert and oriented. DISPOSITION: Home. ACTIVITY: As tolerated. DIET: Low sodium. MEDICATIONS: Please see the MRAD. TOTAL TIME: 34 minutes. XAVI CORREIA DO DR: YOUSUF/thomas JOB#: [id number] / [id number]
--- NOTE | 2019-04-19 13:44 | RAD ---
MRI Brain without contrast History: Left hand numbness and blurred vision Technique: Multiplanar, multisequential noncontrast MR imaging was performed of the brain. Comparison: None Findings: There is again large area of subdural signal change along the left falx although on CT overall calcified, measures about 0.8 cm transverse by 6 cm AP by 2.1 cm cc. This is not associated with significant diffusion signal abnormality. There is a smaller focus of extra-axial signal change along the posterior left falx with similar signal features, also calcified on CT. There is no evidence of recent infarct or cytotoxic edema. Ventricular size is within normal limits. There is [id number]-[id number] supratentorial atrophy somewhat greater of the parietal lobes. 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 There is multifocal moderate T2 and FLAIR hyperintense signal abnormality of the supratentorial parenchyma bilaterally. There is no significant hemosiderin deposition of the brain parenchyma. There is no significant midline shift, intraaxial mass effect, or focal abnormal extra-axial fluid collection. There is no significant signal abnormality of the brain parenchyma. There is preservation of the major intracranial flow-voids at the skull base. The mastoid air cells are aerated. The cerebellar tonsils are normal in location. There is no significant abnormality of the pineal gland or pituitary gland. There is patchy minimal ethmoid air cell mucosal thickening. There is preserved marrow signal of the clivus. There is small Thornwaldt cyst about 0.5 cm Impression: 1. There is no evidence of recent infarct. 2. There is [id number] supratentorial atrophy greater of the parietal lobes. 3. Scattered multifocal T2 and FLAIR hyperintense signal abnormality of the supratentorial parenchyma is nonspecific, probably due to chronic microvascular ischemic disease unless there is known history of inflammatory demyelinating disease. 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 4. There are areas of extra-axial signal change along the falx including more prominent focus more anteriorly eccentric to the left, corresponding with areas of calcification on CT, consideration of sequela of old calcified subdural hematoma given morphology. Electronically signed by: Dami Johnson MD (04/19/2019 1:41 PM) [id number]
--- NOTE | 2019-04-19 14:44 | NUR ---
Discharge Note: HIGINIO RICHARDSON [address] [place] [address] Discharge instructions and discharge home medications reviewed with Patient and a copy given. All questions have been answered and understanding verbalized. The following instructions and handouts were given: FOLLOW UP INSTRUCTIONS WITH DR SHAFFER, MEDICATION LISTS, AND ACTIVITY LEVELS. Discontinued lines and drains: Peripheral IV intact DISCONTINUED AND REMOVED. Patient discharged to Home or Self Care with Family Member via Wheelchair.
== END 2019-04-19 14:33 | disposition home or self-care (01) | DRG 74 ==
LOC: ER 15:35 → 6 SOUTH 18:11
PROVIDERS: ADMIT Internal Medicine; ATTEND Internal Medicine
DX: G56.22 Lesion of ulnar nerve, left upper limb (principal); E78.5 Hyperlipidemia, unspecified; E87.6 Hypokalemia; F17.210 Nicotine dependence, cigarettes, uncomplicated; I11.0 Hypertensive heart disease with heart failure; I50.9 Heart failure, unspecified; J45.909 Unspecified asthma, uncomplicated; K21.9 Gastro-esophageal reflux disease without esophagitis; G43.909 Migraine, unspecified, not intractable, without status migrainosus; M19.90 Unspecified osteoarthritis, unspecified site; Z83.3 Family history of diabetes mellitus; Z90.711 Acquired absence of uterus with remaining cervical stump; S64.32XA Injury of digital nerve of left thumb, initial encounter; X58.XXXA Exposure to other specified factors, initial encounter; Y93.89 Activity, other specified; Y92.89 Other specified places as the place of occurrence of the external cause; Y99.8 Other external cause status
CPT/HCPCS: 36415; 70450; 70496; 70498; 70551; 80048; 80053; 80061; 80307; 81001; 83735; 85025; 85610; 87086; Q9967; 99285-25; G0378